=== PATIENT | female | born 1970 | race Two or more races ===

== ENCOUNTER 2017-08-22 18:35 | Emergency (ER) | payer OTHER ==
[~2017-08-22] VITALS: Ht 154.9 cm; Wt 56.7 kg
[~2017-08-22 18:35] MED LIST: ALBUTEROL0.63 MG/3 IH; TUSSIONEX PENNKI5 ML PO; ZITHROMAX500 MG PO
[2017-08-22] MEDS ORDERED: ADVAIR HFA 115/12 GM (18:46)
== END 2017-08-23 00:23 | disposition home or self-care (01) ==
LOC: ER 18:35
DX: K52.9 Noninfective gastroenteritis and colitis, unspecified (principal)

== ENCOUNTER 2019-09-24 18:51 | Emergency (ER) | payer OTHER ==
[~2019-09-24] VITALS: Ht 154.9 cm; Wt 60.3 kg
[~2019-09-24 18:51] MED LIST changes: +ADVAIR HFA 115/12 GM
[2019-09-24] MEDS ORDERED: NATURE-THROID32.5 MG (19:01)
== END 2019-09-24 19:58 | disposition home or self-care (01) ==
LOC: ER 18:51
DX: H10.13 Acute atopic conjunctivitis, bilateral (principal)